=== PATIENT | male | born 1960 | race Caucasian/White ===

== ENCOUNTER 2017-04-13 18:28 | Emergency (ER) | payer OTHER ==
[~2017-04-13] VITALS: Ht 180.3 cm; Wt 79.0 kg
[~2017-04-13 18:28] MED LIST: CYCL5TAB PO; DILA4TAB10 PO; OXYC15TA PO
[2017-04-13 18:30] VITALS: BP 160/80; PULSE 76; RESP 20; TEMP 98.6; O2SAT 98
[2017-04-13] MEDS ORDERED: VERA40TA PO (18:51)
[2017-04-13] MEDS ORDERED: MORPHINE SULFATE 4 MG/ML INJ IV PUSH ONE (19:15)
[2017-04-13] MEDS ORDERED: ONDANSETRON HCL 4 MG/2 ML VIAL IV PUSH ONE (19:15)
--- NOTE | 2017-04-13 19:29 | RADRPT ---
EXAM DATE/TIME: 04/13/2017 19:07 [place] COMPARISON: No previous studies available for comparison. INDICATIONS : Right 4th digit crush injury. No prior hx. MEDICAL HISTORY : None. SURGICAL HISTORY : None. ENCOUNTER: Initial ACUITY: 1 day PAIN SCORE: 8/10 LOCATION: Right 4th digit FINDINGS: There is a fourth finger tuft fracture with slight splaying of tiny tuft fragments. The finger is oth erwise intact. The DIP joint is intact. CONCLUSION: Fourth finger tuft fracture. Raymond Owens MD on April 13, 2017 at 19:27 Board Certified Radiologist. This report was verified electronically.
[2017-04-13] MEDS ORDERED: LIDOCAINE HCL 1% 50 ML VIAL INFIL ONE (19:45)
[2017-04-13] MEDS ORDERED: BUPIVACAINE HCL PF 0.5% 10 ML VIAL INFIL ONE (19:45)
[2017-04-13] MEDS ORDERED: DICL75TA PO (20:06)
[2017-04-13] MEDS ORDERED: BACT800T5 PO (20:06)
[2017-04-13] MEDS ORDERED: HYDR-3533 PO ×2 (20:06→20:14)
[2017-04-13] MEDS ORDERED: MUPI2OIN TOPICAL (20:06)
--- NOTE | 2017-04-13 20:12 | PD ---
HPI Chief Complaint: Injury Time Seen by Provider: 20:06 Travel History International Travel<30 days: No Contact w/Intl Traveler<30days: No Traveled to known affect area: No History of Present Illness HPI 56-year-old male that presents to the ED for evaluation of right ring finger injury. Per patient he was working on a rash that is malfunctioning and the rash accidentally crushed his right ring finger. Per patient he went to an urgent care and they told him that he needed to come here to get evaluated by a hand surgeon. Per patient he was told he had a crush injury and possible tendon injury. Patient was anesthetized and had an x-ray. No information was given for the patient to provide to us. No x-rays were given to him to give to us. Patient states that his pain is minimal as he was just and is the size on the area. Per patient his pain originally was 10 out of 10 now his 2 out of 10. Per patient some of the medication seems to be wearing off. He denies any other injuries. He states that he was given a tetanus booster at the facility. Patient able to move the finger fully. Per patient he had some numbness initially. No other injuries reported. 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) Tetanus Vaccination: < 5 Years Past Surgical History Tonsillectomy: Yes Social History Alcohol Use: Yes (OCC) Tobacco Use: Yes (PACK AND HALF DAY) Substance Use: No Allergies-Medications (Allergen,Severity, Reaction): Coded Allergies: No Known Allergies (Verified , 04/13/17) Reported Meds & Prescriptions Reported Meds & Active Scripts Active Mupirocin Topical (Mupirocin) 2 % Oint 1 Applic TOPICAL BID Lortab (Hydrocodone-Acetaminophen) 5-325 Mg Tab 1 Tab PO Q6H PRN Diclofenac Sodium DR (Diclofenac Sodium) 75 Mg Tabdr 75 Mg PO BID PRN Bactrim DS (Sulfamethoxazole-Trimethoprim) 800-160 Mg Tab 1 Tab PO BID 7 Days Reported Verapamil (Verapamil HCl) 40 Mg Tab 40 Mg PO Q8H Review of Systems Except as stated in HPI: all other systems reviewed are Neg Physical Exam Narrative GENERAL: SKIN: Warm and dry. HEAD: Atraumatic. Normocephalic. EYES: Pupils equal and round. No scleral icterus. No injection or drainage. ENT: No nasal bleeding or discharge. Mucous membranes pink and moist. Tongue is midline. No uvula deviation. NECK: Trachea midline. No JVD. CARDIOVASCULAR: Regular rate and rhythm. No murmurs, S3, S4. RESPIRATORY: No accessory muscle use. Clear to auscultation. Breath sounds equal bilaterally. GASTROINTESTINAL: Abdomen soft, non-tender, nondistended. Hepatic and splenic margins not palpable. MUSCULOSKELETAL: Extremities without clubbing, cyanosis, or edema. No obvious deformities. Full range of motion of the upper and lower extremities bilaterally. 2+ pulses bilaterally. Patient has full range of motion of all fingers of the right hand. Patient able to completely flex the right ring finger that does not appear to be flexed as much as the other digits. Patient does have a hematoma to the tip of the digit. Tenderness to palpation this area. Good capillary refill. NEUROLOGICAL: Awake and alert. No obvious cranial nerve deficits. Motor grossly within normal limits. Five out of 5 muscle strength in the arms and legs. Normal speech. PSYCHIATRIC: Appropriate mood and affect; insight and judgment normal. Data Data Last Documented VS Vital Signs Date Time Temp Pulse Resp B/P Pulse Ox O2 Delivery O2 Flow Rate FiO2 04/13/17 18:30 98.6 76 20 160/80 98 Room Air Orders Finger (Sfo1csy) (04/13/17 ) Wound Care (04/13/17 18:52) Morphine Inj (Morphine Inj) (04/13/17 19:15) Ondansetron Inj (Zofran Inj) (04/13/17 19:15) Bupivacaine Pf 0.5% Inj (Marcaine Pf 0.5 (04/13/17 19:45) Lidocaine 1% Inj (50 Ml) (Xylocaine 1% I (04/13/17 19:45) Splint Or Brace Apply/Monitor (04/13/17 20:04) [facility] Medical Decision Making Medical Screen Exam Complete: Yes Emergency Medical Condition: Yes Medical Record Reviewed: Yes Interpretation(s) Last Impressions Finger X-Ray 04/13/17 0000 Signed Impressions: Service Date/Time: Thursday, April 13, 2017 19:07 - CONCLUSION: Fourth finger tuft fracture. Raymond Owens MD Differential Diagnosis Fracture versus tendon injury versus contusion versus bruise versus laceration Narrative Course 48-year-old male that presents to the ED for evaluation of injury to his right ring finger. Patient was properly examined and was found to have signs and symptoms consistent appears to be fracture as well as laceration. Patient was told by urgent care that he needed a hand surgeon. X-ray here showed a fracture. Otherwise unremarkable. Patient able to flex the finger fully. Case was discussed with her hand surgeon on-call Dr. Dennis who agrees the patient can have laceration repair by me as well as follow-up in his office. Patient was told this and agrees with plan. After explained procedure to the patient and he agreed to it laceration was repaired as stated in procedure note. Patient was told to get sutures removed in 14 days. Patient was put on a splint. Patient was given prescriptions for Lortab, diclofenac sodium, Bactrim, mupirocin cream. Close follow with hand surgeon recommended. Ice. See ED worsening symptoms. Wound care was endorsed. Diagnosis Primary Impression: Fracture Additional Impression: Laceration of finger Qualified Code: S61.219A - Laceration of finger, initial encounter Referrals: Jaspal Dennis MD Patient Instructions: General Instructions, Narcotic given in the ED Additional Instructions: Wound care daily with soap and water. You can apply bandaid if needed. Neosporyn or OTC antibiotic ointment to area as needed twice a day for at least 2 weeks to help with scarring and prevent infection. Meoderma OTC for scarring if needed. Avoid sun exposure for 2 months as the sun could make scar darker and more noticeable. Get sutures removed in 14 days. See ED if worst. Follow-up with hand surgeon her PCP. Keep splint for the next week until cleared by surgeon. Med/Other Pt SpecificInfo: Prescription(s) given Scripts Mupirocin Topical 2 % Oint1 Applic TOPICAL BID #1 TUBE Ref 0 Prov:Alyssa Boggs MD 04/13/17 Hydrocodone-Acetaminophen (Lortab)5-325 Mg Tab1 Tab PO Q6H PRN (PAIN) #12 TAB Prov:Alyssa Boggs MD 04/13/[address] 75 Mg Tabdr75 Mg PO BID PRN (PAIN SCALE 1 TO 10) #20 TAB Prov:Alyssa Boggs MD 04/13/17 Sulfamethoxazole-Trimethoprim (Bactrim DS)800-160 Mg Tab1 Tab PO BID 7 Days Prov:Alyssa Boggs MD 04/13/17 Disposition: 01 DISCHARGE HOME Condition: Stable Roland Solares April 13, 2017 20:12
[2017-04-13 20:17] VITALS: BP 142/69
== END 2017-04-13 20:30 | disposition home or self-care (01) ==
LOC: NEPE 18:28
DX: S62.604A Fracture of unspecified phalanx of right ring finger, initial encounter for closed fracture (principal); S61.219A Laceration without foreign body of unspecified finger without damage to nail, initial encounter; W31.9XXA Contact with unspecified machinery, initial encounter; Y99.0 Civilian activity done for income or pay; I10 Essential (primary) hypertension
CPT/HCPCS: 12001; 73140; 96374; 96375; 99284; J2270; J2405

== ENCOUNTER 2017-04-29 08:25 | Emergency (ER) | payer OTHER ==
[~2017-04-29 08:25] MED LIST changes: +BACT800T5 PO; -CYCL5TAB PO; +DICL75TA PO; -DILA4TAB10 PO; +HYDR-3533 PO; +MUPI2OIN TOPICAL; -OXYC15TA PO; +VERA40TA PO
[2017-04-29 08:27] VITALS: BP 142/82; PULSE 77; RESP 20; TEMP 97.8; O2SAT 97
--- NOTE | 2017-04-29 08:44 | PD ---
HPI Chief Complaint: Wound/Suture/Staple Re-Check Time Seen by Provider: 08:43 Travel History International Travel<30 days: No Contact w/Intl Traveler<30days: No Traveled to known affect area: No History of Present Illness HPI 56-year-old male presents to the emergency department for suture removal to his right fourth finger. Sutures been in place for 16 days. He denies drainage, erythema, edema to the wound site. Denies fever, vomiting. No other medical complaints. No known allergies. No other modifying factors or associated signs and symptoms. 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) Past Surgical History Tonsillectomy: Yes Social History Alcohol Use: Yes (OCC) Tobacco Use: Yes (PACK AND HALF DAY) Substance Use: No Allergies-Medications (Allergen,Severity, Reaction): Coded Allergies: No Known Allergies (Verified , 04/13/17) Reported Meds & Prescriptions Reported Meds & Active Scripts Active Lortab (Hydrocodone-Acetaminophen) 5-325 Mg Tab 1 Tab PO Q6H PRN Mupirocin Topical (Mupirocin) 2 % Oint 1 Applic TOPICAL BID Diclofenac Sodium DR (Diclofenac Sodium) 75 Mg Tabdr 75 Mg PO BID PRN Bactrim DS (Sulfamethoxazole-Trimethoprim) 800-160 Mg Tab 1 Tab PO BID 7 Days Reported Verapamil (Verapamil HCl) 40 Mg Tab 40 Mg PO Q8H Review of Systems Except as stated in HPI: all other systems reviewed are Neg Physical Exam Narrative GENERAL: Well-nourished, well-developed male patient, in no acute distress SKIN: Warm and dry. Distal aspect of the right fourth finger to the anterior aspect with well approximated laceration with sutures intact and without erythema, edema, drainage. No signs of infection. Finger with sensory intact less than 3 second cap refill; pink and warm. HEAD: Atraumatic. Normocephalic. EYES: Pupils equal and round. No scleral icterus. No injection or drainage. ENT: Mucosa pink and moist. Airway patent. NECK: Trachea midline. CARDIOVASCULAR: Regular rate. RESPIRATORY: No accessory muscle use. GASTROINTESTINAL: Flat. MUSCULOSKELETAL: No obvious deformities. No clubbing. No cyanosis. No edema. NEUROLOGICAL: Awake and alert. Oriented 3. No obvious cranial nerve deficits. Motor grossly within normal limits. Normal speech. PSYCHIATRIC: Appropriate mood and affect; insight and judgment normal. Data Data Last Documented VS Vital Signs Date Time Temp Pulse Resp B/P Pulse Ox O2 Delivery O2 Flow Rate FiO2 04/29/17 08:27 97.8 77 20 142/82 97 Room Air MDM Medical Decision Making Medical Screen Exam Complete: Yes Emergency Medical Condition: Yes Medical Record Reviewed: Yes Differential Diagnosis Suture removal, staple removal, wound recheck, medical clearance Narrative Course 56-year-old male presents for suture removal to right fourth finger. No signs of infection. Sutures removed. Patient tolerated well. Patient verbalizes understanding and agreement with treatment plan. Patient is medically cleared and stable for discharge. Discussed reasons to return to the emergency department. Instructed patient to follow up with primary care provider. Patient agrees with treatment plan. The patients vital signs are stable and the patient is stable for outpatient follow-up and treatment. Patient discharged home, stable and in no acute distress. Diagnosis Primary Impression: Encounter for removal of sutures Referrals: Primary Care Physician Patient Instructions: General Instructions, Stitches Removal (ED) Departure Forms: Tests/Procedures, Work Release Enter return to work date: Apr 29, 2017 Additional Instructions: Follow-up with primary care provider Return to the emergency department immediately with worsening symptoms Med/Other Pt SpecificInfo: No Change to Meds, No Meds Exist/No RX given Disposition: 01 DISCHARGE HOME Condition: Stable Denia Barry Apr 29, 2017 08:44
== END 2017-04-29 09:21 | disposition home or self-care (01) ==
LOC: NEPK 08:25
DX: S61.214D Laceration without foreign body of right ring finger without damage to nail, subsequent encounter (principal); X58.XXXD Exposure to other specified factors, subsequent encounter; Z48.02 Encounter for removal of sutures
CPT/HCPCS: 99281